=== PATIENT | female | born 1990 | race Caucasian/White ===

== ENCOUNTER 2022-04-27 06:49 | Inpatient (IN) | payer OTHER ==
[2022-04-27 07:15] VITALS: BMI 25.7
[2022-04-27] MEDS ORDERED: Mineral Oil ENEMA PR SCH (07:30)
[2022-04-27] MEDS ORDERED: Terbutaline Sulfate 1 MG/ML VIAL SC SCH (08:00)
[2022-04-27] MEDS ORDERED: Acetaminophen 500 MG TAB PO PRN (09:00)
[2022-04-27] MEDS ORDERED: Ondansetron PF 4 MG/2 ML Vial IVP PRN ×2 (09:00→16:57)
[2022-04-27] MEDS ORDERED: hydrALAZINE 20 MG/ML VIAL SLOW IVP PRN ×2 (09:00→16:03)
[2022-04-27] MEDS ORDERED: Promethazine HCl 25 MG/ML VIAL IM PRN ×2 (09:00→16:57)
[2022-04-27] MEDS ORDERED: Lactated Ringer's 1,000 ML IV SCH (09:00)
[2022-04-27] MEDS ORDERED: Bicitra 30 ML UDCUP PO SCH (09:00)
[2022-04-27] MEDS ORDERED: Famotidine/PF 20 mg/2ml Vial SLOW IVP PRN (09:01)
[2022-04-27] MEDS ORDERED: CEFAZOLIN 2 GM in Sodium Chloride 0.9% 100 ML IVPB SCH (09:15)
[2022-04-27 10:07] LABS: Hemoglobin 11.3 g/dL (12.0-15.5); Mean Corpuscular HGB CONC 32.7 g/dL (32.0-36.0); Mean Corpuscular Hemoglobin 27.6 pg (27.0-33.0); Mean Corpuscular Volume 84.6 fl (81.6-98.3); Red Blood Cell (RBC) Count 4.09 10x6/uL (3.90-5.03); White Blood Cell (WBC) Count 7.3 10x3/uL (3.5-10.5)
[2022-04-27 10:08] LABS: Mean Platelet Volume 11.5 fl (7.4-10.4); Platelet Count 180 10x3/uL (150-450); RBC Distribution Width 14.7 % (11.5-14.5)
[2022-04-27 10:36] LABS: Hep B Surf Ag Non-Reactive S/CO (NonReactive); Syphilis Antibody Nonreactive (Nonreactive); Syphilis Antibody Index 0.05 S/CO (<1.00 Non-Reactive)
[2022-04-27 10:40] LABS: HBSAg Index 0.17 S/CO (0-0.99)
[2022-04-27] MEDS: Lactated Ringer's 1,000 ML IV SCH ×3 (10:53→18:24)
[2022-04-27 12:14] LABS: SARS-CoV-2 NAA Rapid Test Not Detected (NotDetected)
[2022-04-27] MEDS ORDERED: CEFAZOLIN 2 GM VIAL ONE (15:12)
[2022-04-27] MEDS ORDERED: HYDROcodone/Acetaminophen 5/325 mg Tablet PO PRN ×2 (16:03)
[2022-04-27] MEDS ORDERED: diphenhydrAMINE 25 MG CAP PO PRN (16:03)
[2022-04-27] MEDS ORDERED: Bisacodyl 10 MG SUPP PR PRN (16:03)
[2022-04-27] MEDS ORDERED: Boostrix 0.5 ML (Tdap) VIAL IM ONE (16:03)
[2022-04-27] MEDS ORDERED: Lanolin Ointment 7 GM TUBE TOP PRN (16:03)
[2022-04-27] MEDS ORDERED: Methylergonovine 0.2 MG/ML VIAL IM PRN (16:03)
[2022-04-27] MEDS ORDERED: Simethicone Chewable 80 MG TAB PO PRN (16:03)
[2022-04-27] MEDS ORDERED: Misoprostol 200 MCG TAB PR PRN (16:03)
[2022-04-27] MEDS ORDERED: Fentanyl 100 MCG/2 ML VIAL ONE (16:06)
[2022-04-27] MEDS ORDERED: Morphine PF 10 MG/10 ML VIAL ONE (16:06)
[2022-04-27] MEDS ORDERED: Dexamethasone 4 mg/ml Vial ONE (16:08)
[2022-04-27] MEDS ORDERED: Ondansetron PF 4 MG/2 ML Vial ONE ×2 (16:08→17:28)
[2022-04-27] MEDS ORDERED: Ketorolac Tromethamine 30 MG/ML VIAL ONE (16:17)
[2022-04-27] MEDS ORDERED: Ketamine 50 MG/ML (10ML VIAL) ONE (16:33)
[2022-04-27] MEDS ORDERED: Moisturizing Cream (Eucerin) 113 GM JAR TOP PRN (16:57)
[2022-04-27] MEDS ORDERED: Ondansetron HCl/PF 4 MG/2 ML Vial IVP PRN (16:57)
[2022-04-27] MEDS ORDERED: Naloxone HCl 0.4 mg/ml Vial IV PRN (16:57)
[2022-04-27] MEDS ORDERED: Promethazine HCl 25 MG SUPP PR PRN (16:57)
[2022-04-27] MEDS ORDERED: Ketorolac Tromethamine 30 MG/ML VIAL IVP PRN (16:57)
[2022-04-27] MEDS ORDERED: Meperidine HCl/PF 25 MG/ML VIAL SLOW IVP PRN (16:57)
[2022-04-27] MEDS ORDERED: Fentanyl 100 MCG/2 ML VIAL SLOW IVP PRN (16:57)
[2022-04-27] MEDS ORDERED: diphenhydrAMINE 50 MG/ML VIAL IVP PRN (16:57)
[2022-04-27] MEDS ORDERED: L&D-Morphine 4 MG/ML VIAL SLOW IVP PRN (16:57)
[2022-04-27] MEDS ORDERED: Naloxone HCl 0.4 mg/ml Vial IVP PRN ×2 (16:57)
[2022-04-27] MEDS ORDERED: Communication Order-Pharmacy FS SCH (17:00)
[2022-04-27] MEDS ORDERED: Ketorolac Tromethamine 30 MG/ML VIAL IVP SCH (17:00)
[2022-04-27] MEDS ORDERED: Ibuprofen 800 MG TAB PO SCH (22:00)
[2022-04-28] MEDS: Docusate 100 MG CAP PO SCH ×3 (00:39→21:04)
[2022-04-28 04:48] LABS: Hemoglobin 10.7 g/dL (12.0-15.5); Mean Corpuscular HGB CONC 33.1 g/dL (32.0-36.0); Mean Corpuscular Hemoglobin 27.6 pg (27.0-33.0); Mean Corpuscular Volume 83.2 fl (81.6-98.3); Mean Platelet Volume 11.2 fl (7.4-10.4); Platelet Count 172 10x3/uL (150-450); RBC Distribution Width 14.8 % (11.5-14.5); Red Blood Cell (RBC) Count 3.88 10x6/uL (3.90-5.03); White Blood Cell (WBC) Count 9.8 10x3/uL (3.5-10.5)
[2022-04-28] MEDS: Prenatal Vitamin 1 TAB PO SCH (08:30)
[2022-04-28] MEDS: traMADol HCl 50 MG TAB PO PRN ×3 (09:11→22:31)
[2022-04-28] MEDS: Ibuprofen 800 MG TAB PO SCH ×2 (14:44→21:04)
[2022-04-28] MEDS: Acetaminophen 325 MG TAB PO PRN ×2 (19:18→23:19)
[2022-04-29] MEDS: traMADol HCl 50 MG TAB PO PRN ×3 (04:30→17:35)
[2022-04-29] MEDS: Acetaminophen 325 MG TAB PO PRN ×4 (04:33→17:33)
[2022-04-29] MEDS: Ibuprofen 800 MG TAB PO SCH ×2 (06:07→13:52)
[2022-04-29] MEDS: Docusate 100 MG CAP PO SCH (08:33)
[2022-04-29] MEDS: Prenatal Vitamin 1 TAB PO SCH (08:33)
[2022-04-29 10:14] VITALS: TEMP 98.1
[2022-04-29 14:53] VITALS: BP 113/57
== END 2022-04-29 20:15 | disposition home or self-care (01) | DRG 788 ==
LOC: CSHLD/OP 06:49 → EDSTATUS 07:30 → CSHLD 09:38 → EDBD 09:38 → CSHPP 10:36
PROVIDERS: ADMIT Obstetrics & Gynecology; ATTEND Obstetrics & Gynecology
PROC: 10D00Z1 Extraction of Products of Conception, Low, Open Approach (ICD-10-PCS; principal; 2022-04-27)
DX: O32.8XX0 Maternal care for other malpresentation of fetus, not applicable or unspecified (principal); Z3A.38 38 weeks gestation of pregnancy; Z37.0 Single live birth; Z20.822 Contact with and (suspected) exposure to COVID-19; D50.9 Iron deficiency anemia, unspecified; O90.81 Anemia of the puerperium
CPT/HCPCS: 36415; 36416; 51702; 59412; 76815; 85027; 86780; 86850; 86900; 86901; 87340; 99285; J0690; J1100; J1885; J2274; J2405; J2550; J3010; J3105; J7120; S0028; U0002